=== PATIENT | male | born 1955 | race Caucasian/White ===

== ENCOUNTER 2016-07-01 08:13 | Emergency (ER) | payer OTHER ==
--- NOTE | 2016-07-01 08:21 | UCPHY ---
H & P Time Seen by Provider: 07/01/16 08:20 Patient Type: New HPI/ROS: Chief complaint. Fever HPI. 61-year-old male fever, scratchy throat, cough for 4 days. Fever to 103 degrees. Several episodes of vomiting with eating. Cough is nonproductive. Decreased energy and appetite. No known exposures to Infectious Disease or recent travel. He has no abdominal pain. No diarrhea. No urinary symptoms. No rash. No chest discomfort or trouble breathing. Patient did get a flu shot ROS Constitutional. Fever Eyes. no problems with vision ENT. Scratchy throat Cardiovascular. no chest pain Respiratory. Cough Abdominal. Vomiting . no problems urinating MS. no calf pain/swelling, no neck/back pain, no joint pain Skin. no rash Lymph. no swollen glands Neuro. no headache, no dizziness, no difficulty walking or with speech Past Medical/Surgical History: History of pericarditis Social History: , nonsmoker, no alcohol Physical Exam: General Appearance: Alert well-developed male mild distress vital signs show the patient be afebrile Eyes: Pupils equal and round no pallor or injection. ENT, tympanic membranes are normal. Pharynx without injection or exudate. Mucous membranes are moist Respiratory: There are no retractions. Mild inspiratory expiratory rhonchi. Cardiovascular: Regular rate and rhythm. Gastrointestinal: Abdomen is soft and nontender, no masses, bowel sounds normal. Neurological: Awake and alert, sensory and motor exams grossly normal. Skin: Warm and dry, no rashes. Musculoskeletal: Neck is supple nontender. Extremities symmetrical, full range of motion. Psychiatric: Patient is oriented X 3, there is no agitation. Constitutional: Initial Vital Signs Temperature (C) 36.5 C 07/01/16 08:20 Heart Rate 91 07/01/16 08:20 Respiratory Rate 16 07/01/16 08:20 Blood Pressure 91/54 L 07/01/16 08:20 O2 Sat (%) 95 07/01/16 08:20 O2 Delivery Mode Room Air Allergies/Adverse Reactions: No Known Allergies Allergy (Verified 07/01/16 08:22) Home Medications: Medication Instructions Recorded Benzonatate [Tessalon Pearles (RX)] 100 mg PO Q4-6PRN PRN #14 cap 07/01/16 Ondansetron Odt [Zofran Odt] 4 mg PO Q4PRN PRN #4 tab 07/01/16 Medical Decision Making ED Course/Re-evaluation: Patient remains stable. Patient and his and I discussed that this is likely viral syndrome. We discussed treatment plan including criteria for return and importance of follow- up and further evaluation. They expressed understanding and agreement Differential Diagnosis: I think this is likely viral syndrome. I considered otitis media, pharyngitis, pneumonia. This may well be influenza. He sat out of the window for Tamiflu and so no further testing is indicated Departure - Departure Disposition: Home, Routine, Self-Care Clinical Impression: Viral syndrome Condition: Good Instructions: Viral Syndrome (ED) Additional Instructions: Ibuprofen 6-800 mg every 6 hours, Tylenol 1000 mg every 4-6 hours as needed for fever. Zofran if needed for nausea and vomiting. Tessalon Perles for cough. Drink plenty of fluids and stay hydrated. Return for worsening breathing or vomiting. Recheck in 2-3 days if not improving Referrals: John Og MD [Primary Care Provider] - 2-3 days, if not improved Prescriptions: Benzonatate [Tessalon Pearles (RX)] 100 mg PO Q4-6PRN PRN #14 cap PRN Reason: Cough, Moderate Ondansetron Odt [Zofran Odt] 4 mg PO Q4PRN PRN #4 tab PRN Reason: Nausea/Vomiting, Use 1st - PQRS PQRS Measurement: 134: Depression screening and followup, PRIME MD-PHQ2 (12 years and older) Over the last 2 weeks, how often have you been bothered by any of the following problems? 1. Feeling down, depressed, or hopeless? 2. Little interest or pleasure in doing things? Patient answered no to both 1 and 2 130: Documentation of medications. Reviewed all patient medications, doses, route and frequency. 226: Do you smoke? No.
[2016-07-01 08:22] VITALS: RESP 16; TEMP 97.7
[2016-07-01 08:44] VITALS: BP 101/58; PULSE 92; O2SAT 96
== END 2016-07-01 08:46 | disposition home or self-care (01) ==
LOC: CED 08:13
DX: B34.9 Viral infection, unspecified (principal)
CPT/HCPCS: G0463-PO